=== PATIENT | female | born 1940 | race Caucasian/White ===

== ENCOUNTER 2022-06-23 11:43 | Inpatient (IN) | payer MEDICARE ==
[~2022-06-23] VITALS: Ht 152.4 cm; Wt 43.1 kg
[2022-06-23] MEDS ORDERED: MORPHINE SULFATE 4 MG/ML CPJ (NOT FOR IM USE) IV ONE (12:45)
[2022-06-23 12:47] LABS: BASOPHILS % 0.7 % (0.0-2.0); EOSINOPHILS % 0.7 % (0.0-5.0); HEMATOCRIT. 29.8 % (36.0-48.0); HEMOGLOBIN. 9.7 g/dL (12.0-16.0); LYMPHOCYTES % 9.9 % (20.0-50.0); MEAN CORPUSCULAR HEMOGLOBIN 26.9 pg (28.0-32.0); MEAN CORPUSCULAR VOLUME 82.6 fL (81.0-99.0); MEAN PLATELET VOLUME 7.5 fl (7.4-10.4); MONOCYTES % 7.2 % (2.0-8.0); NEUTROPHILS % 81.5 % (40.0-76.0); PLATELET 306 x1000/uL (130-400); RED BLOOD CELL COUNT 3.61 mill/uL (4.2-5.4); RED CELL DISTRIBUTION WIDTH 14.1 % (11.6-14.6)
[2022-06-23 12:50] LABS: CHLORIDE 106 mEq/L (98-107)
[2022-06-23 16:17] LABS: TOTAL IRON BINDING CAPACITY 176 ug/dL (250-450)
[2022-06-23 16:20] LABS: FERRITIN 133 ng/mL (10-291)
[2022-06-23 18:27] LABS: CLARITY URINE CLOUDY (CLEAR); COLOR URINE YELLOW (YELLOW); KETONES URINE NEGATIVE (NEGATIVE); LEUKOCYTE ESTERASE URINE 3+ (NEGATIVE); NITRITE URINE POSITIVE (NEGATIVE); OCCULT BLOOD URINE NEGATIVE (NEGATIVE); PROTEIN URINE TRACE (NEGATIVE); SPECIFIC GRAVITY URINE 1.014 (1.005-1.030)
[2022-06-23] MEDS ORDERED: ACETAMINOPHEN 325MG TABLET PO PRN ×2 (18:30)
[2022-06-23] MEDS ORDERED: IPRATROPIUM/ALBUTEROL 0.5-3(2.5)MG/3ML NEB NEB PRN (18:30)
[2022-06-23] MEDS ORDERED: MAGNESIUM/ALUMINUM HYDROXIDE/SIMETHICONE 30ML UDC PO PRN (18:30)
[2022-06-23] MEDS ORDERED: DOCUSATE SODIUM 100MG CAPSULE PO PRN (18:30)
[2022-06-23] MEDS ORDERED: CLONIDINE 0.1MG TABLET PO PRN (18:30)
[2022-06-23] MEDS ORDERED: GUAIFENESIN 200MG/10ML SUGAR FREE UDC PO PRN (18:30)
[2022-06-23 18:34] LABS: VITAMIN B12 SERUM > 2000 pg/mL (211-911)
[2022-06-23] MEDS ORDERED: NALOXONE HCL 0.4MG/ML VIAL IV PRN (18:45)
[2022-06-23] MEDS ORDERED: ALBUTEROL (0.083%) 2.5MG/3ML NEB HHN PRN (18:45)
[2022-06-23] MEDS ORDERED: IPRATROPIUM BROMIDE (0.02%) 0.5MG/2.5ML NEB HHN PRN (18:45)
[2022-06-23] MEDS: PANTOPRAZOLE SODIUM 40 MG/VIAL IV SCH (19:02)
[2022-06-23 20:00] VITALS: BP 121/95
[2022-06-23 20:42] VITALS: BP 121/95
[2022-06-23] MEDS ORDERED: CEFTRIAXONE 1 G PREMIX 50 ML IV SCH (22:30)
[2022-06-23] MEDS: ENOXAPARIN 30MG/0.3ML SYR SUBCUT SCH (22:39)
[2022-06-23] MEDS: CEFTRIAXONE 1,000 MG in DEXTROSE 5% WATER 50 ML IV SCH (23:21)
[2022-06-24] VITALS: BP 125/90
[2022-06-24 04:00] VITALS: BP 134/78
[2022-06-24] MEDS: PANTOPRAZOLE SODIUM 40 MG/VIAL IV SCH ×2 (05:25→17:19)
[2022-06-24 06:29] LABS: BASOPHILS % 0.7 % (0.0-2.0); EOSINOPHILS % 1.2 % (0.0-5.0); HEMATOCRIT. 29.3 % (36.0-48.0); HEMOGLOBIN. 9.6 g/dL (12.0-16.0); MEAN CORPUSCULAR HEMOGLOBIN 27.1 pg (28.0-32.0); MEAN CORPUSCULAR VOLUME 82.9 fL (81.0-99.0); MEAN PLATELET VOLUME 7.9 fl (7.4-10.4); NEUTROPHILS % 81.1 % (40.0-76.0); PLATELET 279 x1000/uL (130-400); RED BLOOD CELL COUNT 3.53 mill/uL (4.2-5.4); RED CELL DISTRIBUTION WIDTH 14.3 % (11.6-14.6)
[2022-06-24 08:00] VITALS: BP 118/77
[2022-06-24] MEDS: LISINOPRIL 10MG TABLET PO SCH (08:29)
[2022-06-24 12:00] VITALS: BP 114/75
[2022-06-24 16:00] VITALS: BP 139/77
[2022-06-24] MEDS: HYDROCODONE/ACETAMINOPHEN 5/325MG TABLET PO PRN (16:23)
[2022-06-24] MEDS: ENOXAPARIN 30MG/0.3ML SYR SUBCUT SCH (20:00)
[2022-06-24] MEDS: CEFTRIAXONE 1,000 MG in DEXTROSE 5% WATER 50 ML IV SCH (20:19)
[2022-06-25] MEDS: ONDANSETRON HCL 4MG/2ML INJ IV PRN ×2 (03:30→08:37)
[2022-06-25] MEDS: HYDROCODONE/ACETAMINOPHEN 5/325MG TABLET PO PRN (03:31)
[2022-06-25 04:00] VITALS: BP 118/74
[2022-06-25] MEDS: PANTOPRAZOLE SODIUM 40 MG/VIAL IV SCH ×2 (06:21→18:04)
[2022-06-25 08:00] VITALS: BP 129/74
[2022-06-25 08:12] LABS: BASOPHILS % 0.3 % (0.0-2.0); EOSINOPHILS % 0.3 % (0.0-5.0); HEMATOCRIT. 30.5 % (36.0-48.0); HEMOGLOBIN. 9.9 g/dL (12.0-16.0); LYMPHOCYTES % 8.2 % (20.0-50.0); MEAN CORPUSCULAR HEMOGLOBIN 27.3 pg (28.0-32.0); MEAN CORPUSCULAR VOLUME 83.7 fL (81.0-99.0); MEAN PLATELET VOLUME 7.8 fl (7.4-10.4); MONOCYTES % 5.8 % (2.0-8.0); NEUTROPHILS % 85.4 % (40.0-76.0); PLATELET 308 x1000/uL (130-400); RED BLOOD CELL COUNT 3.65 mill/uL (4.2-5.4); RED CELL DISTRIBUTION WIDTH 14.3 % (11.6-14.6)
[2022-06-25] MEDS: LISINOPRIL 10MG TABLET PO SCH (08:37)
[2022-06-25 12:00] VITALS: BP 107/69
[2022-06-25 15:55] VITALS: BP 127/66
[2022-06-25] MEDS: METOCLOPRAMIDE HCL 10MG/2ML VIAL IV SCH (18:05)
[2022-06-25] MEDS: BISACODYL 5MG TABLET PO SCH ×2 (18:05→21:07)
[2022-06-25] MEDS: SORBITOL 70% SOLN 30ML PO SCH ×2 (18:06→21:08)
[2022-06-25 20:00] VITALS: BP 141/72
[2022-06-25] MEDS: ENOXAPARIN 30MG/0.3ML SYR SUBCUT SCH (21:08)
[2022-06-25] MEDS: ONDANSETRON 4MG ODT PO PRN (21:34)
[2022-06-26] VITALS: BP 113/73
[2022-06-26] MEDS: CEFTRIAXONE 1,000 MG in DEXTROSE 5% WATER 50 ML IV SCH ×2 (01:24→20:13)
[2022-06-26] MEDS: METOCLOPRAMIDE HCL 10MG/2ML VIAL IV SCH (01:24)
[2022-06-26 03:04] LABS: HEMATOCRIT. 31.8 % (36.0-48.0); HEMOGLOBIN. 10.3 g/dL (12.0-16.0); MEAN CORPUSCULAR HEMOGLOBIN 27.2 pg (28.0-32.0); MEAN PLATELET VOLUME 7.9 fl (7.4-10.4); PLATELET 348 x1000/uL (130-400); RED BLOOD CELL COUNT 3.79 mill/uL (4.2-5.4); RED CELL DISTRIBUTION WIDTH 14.6 % (11.6-14.6)
[2022-06-26 03:12] LABS: CHLORIDE 109 mEq/L (98-107)
[2022-06-26 03:15] LABS: INR 1.1; PROTHROMBIN TIME 11.9 sec (9.6-11.0)
[2022-06-26 03:53] LABS: ATYPICAL LYMPHOCYTES 2; PLATELET ESTIMATE NORMAL
[2022-06-26 04:00] VITALS: BP 129/65
[2022-06-26] MEDS: PANTOPRAZOLE SODIUM 40 MG/VIAL IV SCH ×2 (05:57→18:10)
[2022-06-26 08:00] VITALS: BP 145/82
[2022-06-26] MEDS: LISINOPRIL 10MG TABLET PO SCH (09:08)
[2022-06-26 12:00] VITALS: BP 169/67
[2022-06-26] MEDS ORDERED: NA PHOS,M-B/NA PHOS,DI-BA ENEMA 118ML PR NR (12:00)
[2022-06-26] MEDS ORDERED: SIMETHICONE 40 MG/0.6 ML 15ML ONE (13:05)
[2022-06-26] MEDS ORDERED: ONDANSETRON HCL 4MG/2ML INJ IV PRN (14:15)
[2022-06-26] MEDS ORDERED: LABETALOL 5MG/ML SYR 20 MG/4 ML SYRINGE IV PRN (14:15)
[2022-06-26] MEDS ORDERED: HYDROMORPHONE HCL/PF 2MG/ML CPJ IV PRN (14:15)
[2022-06-26] MEDS ORDERED: MEPERIDINE HCL/PF 25MG/ML CPJ IV PRN (14:15)
[2022-06-26 20:00] VITALS: BP 155/77
[2022-06-26] MEDS: ENOXAPARIN 30MG/0.3ML SYR SUBCUT SCH (20:13)
[2022-06-27] VITALS: BP 147/85
[2022-06-27 04:00] VITALS: BP 171/88
[2022-06-27] MEDS: PANTOPRAZOLE SODIUM 40 MG/VIAL IV SCH ×2 (05:28→18:12)
[2022-06-27 08:00] VITALS: BP 130/66
[2022-06-27] MEDS: LISINOPRIL 10MG TABLET PO SCH (08:34)
[2022-06-27 12:00] VITALS: BP 134/71
[2022-06-27 16:00] VITALS: BP 130/66
[2022-06-27] MEDS: ASCORBIC ACID 500 MG TABLET PO SCH (18:12)
[2022-06-27] MEDS: FERROUS SULFATE 325MG TABLET PO SCH (18:12)
[2022-06-27 20:00] VITALS: BP 147/68
[2022-06-27] MEDS: CEFTRIAXONE 1,000 MG in DEXTROSE 5% WATER 50 ML IV SCH (20:19)
[2022-06-28] VITALS (14 sets, daily range): BP systolic 130–172; BP diastolic 68–81
[2022-06-28] MEDS: PANTOPRAZOLE SODIUM 40 MG/VIAL IV SCH (05:31)
[2022-06-28 06:31] LABS: HEMATOCRIT. 27.9 % (36.0-48.0); HEMOGLOBIN. 9.3 g/dL (12.0-16.0); MEAN CORPUSCULAR HEMOGLOBIN 27.9 pg (28.0-32.0); MEAN CORPUSCULAR VOLUME 83.2 fL (81.0-99.0); MEAN PLATELET VOLUME 7.7 fl (7.4-10.4); PLATELET 247 x1000/uL (130-400); RED BLOOD CELL COUNT 3.35 mill/uL (4.2-5.4); RED CELL DISTRIBUTION WIDTH 14.8 % (11.6-14.6)
[2022-06-28 06:38] LABS: INR 1.1; PROTHROMBIN TIME 11.9 sec (9.6-11.0)
[2022-06-28] MEDS ORDERED: LIDOCAINE HCL 1% 10 MG/ML 10ML VIAL ONE (07:16)
[2022-06-28] MEDS ORDERED: SODIUM BICARBONATE 4% (2.4MEQ) 5ML VIAL IV ONE (07:16)
[2022-06-28] MEDS: ASCORBIC ACID 500 MG TABLET PO SCH (07:50)
[2022-06-28] MEDS ORDERED: FENTANYL CITRATE/PF 50MCG/ML 2ML VIAL ONE (08:44)
[2022-06-28 09:07] LABS: CHLORIDE 114 mEq/L (98-107)
[2022-06-28] MEDS ORDERED: FENTANYL CITRATE/PF 50MCG/ML 2ML VIAL IV ONE (09:15)
[2022-06-28] MEDS: FERROUS SULFATE 325MG TABLET PO SCH (09:57)
[2022-06-28] MEDS: LISINOPRIL 10MG TABLET PO SCH (09:59)
[2022-06-28] MEDS ORDERED: ASCO500T20 PO (14:04)
[2022-06-28] MEDS ORDERED: FERR-63 PO (14:04)
[2022-06-28] MEDS ORDERED: LISI10TA26 PO (14:04)
[2022-06-28] MEDS ORDERED: WHEA152P PO (14:04)
[2022-06-28] MEDS: ONDANSETRON 4MG ODT PO PRN (16:14)
[2022-06-28 16:27] LABS: HEMATOCRIT 31.1 % (36.0-48.0)
[2022-06-28 17:41] LABS: PLATELET ESTIMATE NORMAL
== END 2022-06-28 16:40 | disposition home health service (06) | DRG 435 ==
LOC: ER 11:43 → 6EST 17:17 → EDBEDREQ 17:18 → EDBEDREQTM 17:18 → SUPCPDRO 17:32 → ENRESERV 19:28
PROVIDERS: ADMIT Internal Medicine; ATTEND Internal Medicine
PROC: 0DBN8ZZ Excision of Sigmoid Colon, Via Natural or Artificial Opening Endoscopic (ICD-10-PCS; principal; 2022-06-26)
PROC: 0FB23ZX Excision of Left Lobe Liver, Percutaneous Approach, Diagnostic (ICD-10-PCS; 2022-06-28)
DX: C22.9 Malignant neoplasm of liver, not specified as primary or secondary (principal); K57.31 Diverticulosis of large intestine without perforation or abscess with bleeding; N13.6 Pyonephrosis; R18.8 Other ascites; T79.7XXA Traumatic subcutaneous emphysema, initial encounter; K76.89 Other specified diseases of liver; I25.10 Atherosclerotic heart disease of native coronary artery without angina pectoris; I10 Essential (primary) hypertension; F41.9 Anxiety disorder, unspecified; F17.210 Nicotine dependence, cigarettes, uncomplicated; D63.8 Anemia in other chronic diseases classified elsewhere; K63.5 Polyp of colon; J44.9 Chronic obstructive pulmonary disease, unspecified; M54.40 Lumbago with sciatica, unspecified side; X58.XXXA Exposure to other specified factors, initial encounter; Y93.89 Activity, other specified; Y92.89 Other specified places as the place of occurrence of the external cause; Y99.8 Other external cause status; K82.8 Other specified diseases of gallbladder; D50.0 Iron deficiency anemia secondary to blood loss (chronic)
CPT/HCPCS: 36415; 71045; 74176; 76700; 76942; 80048; 80053; 80061; 80076; 81003; 82105; 82378; 82607; 82728; 82746; 83540; 83550; 83605; 83880; 84145; 84484; 85014; 85018; 85025; 85044; 86301; 86304; 87077; 87186; 87426; 88305; 88307; 93005; 99285; C1893; C9113; J0696; J1650; J2405; J2765; J3010; J3490; J7060; Q0162